=== PATIENT | female | born 1985 | race Caucasian/White ===

== ENCOUNTER → 2019-07-19 | Outpatient (CLI) | payer OTHER | END | disposition home or self-care (01) | LOC: LB 07:52 | DX: L70.0 Acne vulgaris (principal) ==

== ENCOUNTER → 2019-08-15 | Outpatient (CLI) | payer OTHER ==
[2019-08-15 13:30] LABS: CHOLESTEROL/HDL RATIO 2.2
== END | disposition home or self-care (01) ==
LOC: LB 12:31
PROVIDERS: Dermatology
DX: L70.0 Acne vulgaris (principal)

== ENCOUNTER → 2019-09-16 | Outpatient (CLI) | payer OTHER ==
[2019-09-16 09:12] LABS: CHOLESTEROL/HDL RATIO 3.2
== END | disposition home or self-care (01) ==
LOC: LB 07:59
PROVIDERS: ATTEND Dermatology
DX: L70.0 Acne vulgaris (principal)

== ENCOUNTER → 2019-10-17 | Outpatient (CLI) | payer OTHER ==
[2019-10-17 09:18] LABS: ALT/SGPT 16 U/L (14-59); AST/SGOT 22 U/L (15-37); TRIGLYCERIDES 68 mg/dL (<150)
== END | disposition home or self-care (01) ==
LOC: LB 08:24
PROVIDERS: ATTEND Dermatology
DX: L70.0 Acne vulgaris (principal)

== ENCOUNTER → 2019-11-21 | Outpatient (CLI) | payer OTHER ==
[2019-11-21 10:10] LABS: CHOLESTEROL/HDL RATIO 3.7
== END | disposition home or self-care (01) ==
LOC: LB 08:53
PROVIDERS: ATTEND Dermatology
DX: L70.0 Acne vulgaris (principal)